=== PATIENT | female | born 1950 | race African-American/Black ===

== ENCOUNTER 2020-12-07 10:33 | Inpatient (IN) | payer MEDICARE ==
[~2020-12-07] VITALS: Ht 154.9 cm; Wt 46.9 kg
[2020-12-07] VITALS (8 sets, daily range): BP systolic 155–175; BP diastolic 58–119
[2020-12-07] MEDS ORDERED: AMIODARONE HCL400 MG PO (11:16)
[2020-12-07] MEDS ORDERED: COLACE100 MG PO (11:17)
[2020-12-07] MEDS ORDERED: NORVASC5 MG PO (11:17)
[2020-12-07] MEDS ORDERED: TOPROL XL50 MG PO (11:18)
[2020-12-07] MEDS ORDERED: NEURONTIN 300M300 M2 PO (11:18)
[2020-12-07] MEDS ORDERED: SUPER THERAVIT1 EACH PO (11:19)
[2020-12-07] MEDS ORDERED: PERCOCET 5-3251 EACH PO (11:19)
[2020-12-07] MEDS ORDERED: PIPERACIL-TA3.375 G1 IV (11:20)
[2020-12-07] MEDS ORDERED: VANCOCIN 125 M125 M1 IV (11:21)
[2020-12-07 11:31] LABS: ABSOLUTE NEUTROPHILS 10.5 thou/uL (1.4-8.2); BASOPHILS 0.5 % (0.0-2.0); EOSINOPHILS 0.5 % (0.0-3.0); HEMATOCRIT 29.3 % (37.0-47.0); HEMOGLOBIN 9.3 gm/dL (12.0-15.0); LYMPHOCYTES 17.1 % (24.0-44.0); MCHC 31.9 g/dL (28.0-37.0); MCV 84.7 fL (80.0-100.0); MONOCYTES 7.3 % (1.0-8.0); PLATELET COUNT 580 thou/uL (150-400); POLYS 74.6 % (36.0-66.0); RBC 3.47 mil/uL (4.20-5.00); RDW 14.8 % (10.5-14.5); WBC 14.1 thou/uL (4.0-11.0)
[2020-12-07 11:38] LABS: ANION GAP 15 mmol/L (7-16); BUN 29 mg/dL (7-18); CALCIUM 8.9 mg/dL (8.5-10.1); CHLORIDE 109 mmol/L (98-107); CO2 20 mmol/L (21-32); CREATININE 2.2 mg/dL (0.6-1.0); GLUCOSE 119 mg/dL (74-106); SODIUM 144 mmol/L (136-145)
[2020-12-07 11:42] LABS: POTASSIUM 2.9 mmol/L (3.5-5.1)
[2020-12-07 11:49] LABS: ALBUMIN 1.8 g/dL (3.4-5.0); LIPASE 582 U/L (73-393); MAGNESIUM 1.8 mg/dL (1.8-2.4); SGOT 23 U/L (15-37); SGPT 40 U/L (14-59); TOTAL BILIRUBIN 0.3 mg/dL (0.2-1.0); TOTAL PROTEIN 8.5 g/dL (6.4-8.2); TROPONIN-I <0.06 ng/mL (<0.06)
[2020-12-07 11:53] LABS: URINE BILIRUBIN NEGATIVE (Negative); URINE BLOOD NEGATIVE (Negative); URINE CLARITY CLEAR; URINE COLOR YELLOW; URINE GLUCOSE-RANDOM* NEGATIVE (Negative); URINE KETONES NEGATIVE (Negative); URINE LEUKOCYTES-REFLEX NEGATIVE (Negative); URINE NITRITE-REFLEX NEGATIVE (Negative); URINE PROTEIN (DIPSTICK) TRACE (Negative); URINE UROBILINOGEN 0.2 E.U./dl (0.2-1.0)
--- NOTE | 2020-12-07 15:16 | NUR ---
IV NURSE REPORTS THAT LINE PT HAS IS MIDLINE AND PT WILL NEED ORDER FOR PICC, CALL TO FLOOR INFORMED THEM THAT THEY WILL NEED TO GET ORDER FOR PICC FROM HOSPITALIST.NO ANSWER AFTER GREATER THAN 5 MINUTES CALLED BACK STATES THAT [facility] IS TAKING PT AND PLACED BACK ON HOLD.
--- NOTE | 2020-12-07 15:55 | EKG ---
[place] [address] [facility] [place] [address] ELECTROCARDIOGRAM REPORT Name: CHRISTIAN MULLEN Room #: 460-P ADM IN M.R.#: [id number] Admission: 12/07/20 Attend Phys: Az Waggoner MD Discharge: Date of : 48 Report #: [id number] [facility] ED Test Date: 2020-12-07 Test Time: 11:28:20 Pat Name: CHRISTIAN MULLEN Department: Room: 460 Gender: F Sagger Preparer: KF : 1950 Requested By: Trev Wright Order Number: [id number] MD: Quoc Hurtado Measurements Intervals [place] Rate: 56 P: 50 RI: 160 QRS: 19 QRSD: 145 T: 158 QT: 491 QTc: 474 Interpretive Statements Sinus rhythm Left bundle branch block Baseline wander in lead(s) V2 No previous ECG available for comparison Electronically Signed On 12-07-2020 15:55:31 CDT by Quoc Hurtado [email or web address] <ELECTRONICALLY SIGNED> By: Quoc Hurtado MD, [facility] 12/07/20 1555 1128 1128 Quoc Hurtado MD, FACC /EPI
--- NOTE | 2020-12-07 16:25 | NUR ---
VAT CONSULTED FOR PIV PLACEMENT, WHILE PT IN ED. RN REPORTED THAT PT C/O PAIN WHEN "PICC FLUSHED." THIS RN ASSESSED AND IS ACTUALLY A MIDLINE. PT AGAIN, WINCES WHEN FLUSHED. ED RN REPORTED THAT PT RECEIVING IV VANC AND ZOSYN. MIDLINE JUST PLACED 3 DAYS AGO. REMOVED MIDLINE AND ASSESSED BILATERAL ARMS WITH US. NO VESSEL ADEQUATE SIZE FOR PIV INSERTION. RECOMMENDED PICC LINE FOR THIS PT.
--- NOTE | 2020-12-07 19:28 | NUR ---
Pt arrived to floor from emergency room per cart in stable condition. Admission hx ,assessment and careplan completed.Pt has uncontrolled bowel and bladder.Voided and have bm at the same time. Pericare given. Pt and family were frustrated as a result of this and wanted pt have adult diaper.Rn discouraged this but wanted to call for bed mendoza to prevent bed sore.Pt agreed. Dinner tray given and well tolerated.Family left after dinner.Report off to noc rn.
[2020-12-08 04:06] VITALS: BP 169/76
[2020-12-08 04:41] LABS: CREATININE 1.5 mg/dL (0.6-1.0); MAGNESIUM 1.5 mg/dL (1.8-2.4); POTASSIUM 3.3 mmol/L (3.5-5.1)
[2020-12-08 04:50] LABS: ABSOLUTE NEUTROPHILS 10.3 thou/uL (1.4-8.2); BASOPHILS 0.6 % (0.0-2.0); EOSINOPHILS 0.9 % (0.0-3.0); HEMATOCRIT 23.4 % (37.0-47.0); HEMOGLOBIN 7.7 gm/dL (12.0-15.0); LYMPHOCYTES 17.3 % (24.0-44.0); MCH 27.6 pg (26.0-34.0); MCHC 33.1 g/dL (28.0-37.0); MCV 83.5 fL (80.0-100.0); POLYS 73.2 % (36.0-66.0); RDW 14.6 % (10.5-14.5); WBC 14.1 thou/uL (4.0-11.0)
[2020-12-08 04:53] LABS: PLATELET COUNT 477 thou/uL (150-400)
[2020-12-08 07:15] VITALS: BP 167/77
--- NOTE | 2020-12-08 07:40 | NUR ---
PT WAS LYING ON HER BED WATCHING TV AT SHIFT CHANGE.PT STATED TAHT SHE HAS BM WHENEVER SHE URINATES.MID ABD WOUND DRSG DONE,PIC TAKEN.SR ON TELE.PT DENIED PAIN ALL NIGHT.PT REF HER HEPARIN AT HS.PT CONT ON IVF AND IV ABX.REPORT TO AM NURSE.
[2020-12-08 12:57] LABS: HEMATOCRIT 25.3 % (37.0-47.0); HEMOGLOBIN 8.6 gm/dL (12.0-15.0)
[2020-12-08 16:30] VITALS: BP 197/82
--- NOTE | 2020-12-08 19:51 | NUR ---
Assumed pt care this am, Vs stable. Wound care and dressing change done as needed. No pain was noted. Went down for a CT w/ contrast. Has asked for the bed mendoza multiple times. Wound culture orded night nurse informed. POC followed with no signs of distres noted, family at the bed side. Q2 turns done through out the shift. Endorsed to the night nurse.
[2020-12-08 21:18] VITALS: BP 155/76
[2020-12-09 04:52] LABS: HEMATOCRIT 23.1 % (37.0-47.0); HEMOGLOBIN 7.5 gm/dL (12.0-15.0); MCH 27.3 pg (26.0-34.0); MCHC 32.7 g/dL (28.0-37.0); MCV 83.7 fL (80.0-100.0); RBC 2.76 mil/uL (4.20-5.00); RDW 14.8 % (10.5-14.5); WBC 14.7 thou/uL (4.0-11.0)
[2020-12-09 04:57] LABS: CALCIUM 8.1 mg/dL (8.5-10.1); CREATININE 1.3 mg/dL (0.6-1.0); POTASSIUM 3.8 mmol/L (3.5-5.1)
[2020-12-09 07:15] VITALS: BP 173/77
--- NOTE | 2020-12-09 07:30 | NUR ---
PT LYING IN BED. INCONTINENT. DENIES PAIN. DENIES NAUSEA. RESTING COMFORTABLY. NO NEEDS VOICED. CALL LIGHT WITHIN REACH. FREQUENT OBSERVATION.
--- NOTE | 2020-12-09 08:03 | HC ---
[facility] [place] [address] CONSULTATION Name: CHRISTIAN MULLEN Room #: 460-P ADM IN M.R.#: [id number] Admission: 12/07/20 Attend Phys: Az Waggoner MD Discharge: Date of : 48 Report #: [id number] THIS REPORT FOR: cc: Yayo Fowler MD, Christopher B. MD [place], Allen B. MD ~ DATE OF SERVICE: 12/08/2020 WOUND CARE CONSULTATION NOTE LOCATION: [facility]. REASON FOR CONSULTATION: Abdominal pain with drainage from midline surgical incision. HISTORY OF PRESENT ILLNESS: The patient is a 69-year-old woman with chronic kidney disease stage 3, who had undergone 2 abdominal surgical operations at [facility]. She had undergone salpingo-oophorectomy and adhesiolysis on 11/09/2020 in [facility]. After being discharged home, she had abdominal pain and underwent an exploratory laparotomy with bowel resection and drainage of diffuse intraperitoneal abscess secondary to jejunal perforation. The patient remained on antibiotics. She was seen in the Wound Care Clinic, noted to have drainage from her midline abdominal incision, is admitted to the hospital. General Surgery, Dr. Amando Bates has been consulted. The patient now feels relatively well. PAST MEDICAL HISTORY: Chronic kidney disease stage 3. LABORATORY DATA: White blood count 14,100 yesterday and today, hemoglobin 7.7, hematocrit 23.4, creatinine 1.5, estimated glomerular filtration rate 42, potassium 3.3. PHYSICAL EXAMINATION: GENERAL: Shows a thin, chronically ill-appearing elderly woman. She is alert, pleasant, conversant, does not appear to be in pain. HEENT: Mucous membranes are moist. NECK: Supple. LUNGS: Respirations unlabored. GASTROINTESTINAL: Abdominal exam shows a healing midline surgical incision with surgical clips. There is a disrupted portion in the middle of the wound of approximately 1 x 1 cm. This is draining a thick whitish yellow, slightly mucoid drainage, which does not appear to be caustic to the skin. This is suspicious for possible enteric content. The patient has been drinking some Ensure. This draining fluid appears possibly enteric. Wound is explored with a sterile cotton-tipped applicator. There is a significant cavity under the [address] [address] CONSULTATION Name: CHRISTIAN MULLEN Room #: 460-[facility] IN M.R.#: [id number] Admission: 12/07/20 Attend Phys: Az Waggoner MD Discharge: Date of : 48 Report #: [id number] incision with undermining of the wound superiorly and inferiorly and depth of the wound superiorly is approximately 6-7 cm. At the laboratory above, albumin 1.8. Wound does not appear red or infected. IMPRESSION: 1. Severe protein-calorie malnutrition, albumin 1.8. 2. Chronic kidney disease stage 3 , estimated glomerular filtration rate 42. 3. Nonhealing surgical wound with a disruption of the skin incision and clinical suspicion of possible enterocutaneous fistula. IMPRESSION AND DISCUSSION: CT scan of abdomen and pelvis shows some soft tissue thickening and stranding with no drainable fluid collection present. I have discussed the case with Dr. Amando Bates, certified surgical first assistant. The patient may be developing an enterocutaneous fistula. The wound appeared adequately drained at the present time externally. We will continue to pack the wound with Dakin's gauze and observe. General Surgery will make recommendation. Wound may require further opening. May be able to observe the fistula formation with pouching of the wound. The patient may benefit from total parenteral nutrition. We will discuss this with General talent consultant. We will leave current wound care orders in place with packing with quarter-strength Dakin's gauze and observe for drainage and possible fistula formation. <ELECTRONICALLY SIGNED> By: Louis lBair MD 12/09/20 0803 1005 1131 Louis Blair MD /nt
[2020-12-09 16:25] VITALS: BP 141/68
--- NOTE | 2020-12-09 18:28 | NUR ---
Assumed pt care this am, VS stable. Wound care and dressing change done several time through out the shift. Urinary frequency noted through out the shift, requesting for a bed mendoza at least every hour with minimal out put each time. Liquid stools also noted. Poor oral intake and nutrition noted through out the shift, discussed this with the pt as well. IR consult placed for drainage. POC followed with not signs or verbalizations of distress noted. Endorsed to the night nurse.
[2020-12-09 19:02] VITALS: BP 131/61
[2020-12-10 05:45] LABS: ABSOLUTE NEUTROPHILS 11.1 thou/uL (1.4-8.2); BASOPHILS 0.6 % (0.0-2.0); EOSINOPHILS 1.1 % (0.0-3.0); HEMATOCRIT 26.4 % (37.0-47.0); HEMOGLOBIN 8.6 gm/dL (12.0-15.0); LYMPHOCYTES 20.6 % (24.0-44.0); MCH 27.6 pg (26.0-34.0); MCHC 32.8 g/dL (28.0-37.0); MCV 84.2 fL (80.0-100.0); MONOCYTES 8.1 % (1.0-8.0); PLATELET COUNT 457 thou/uL (150-400); POLYS 69.6 % (36.0-66.0); RBC 3.13 mil/uL (4.20-5.00); RDW 15.2 % (10.5-14.5); WBC 15.9 thou/uL (4.0-11.0)
[2020-12-10 07:28] VITALS: BP 151/73
--- NOTE | 2020-12-10 08:24 | NUR ---
PT LYING IN BED. DENIES PAIN. INCONTINENT. RESTING COMFORTABLY. NO NEEDS VOICED. CALL LIGHT WITHIN REACH. FREQUENT OBSERVATION.
[2020-12-10 08:40] LABS: INR 1.13; PROTIME 12.2 Seconds (10.5-12.1)
[2020-12-10 12:41] LABS: CALCIUM 8.7 mg/dL (8.5-10.1); CREATININE 1.5 mg/dL (0.6-1.0); POTASSIUM 4.3 mmol/L (3.5-5.1)
--- NOTE | 2020-12-10 13:09 | NUR ---
RN agrees with HEALTHCARE RECRUITER assessment.
--- NOTE | 2020-12-10 14:35 | NUR ---
PT ADMITTED RELATED TO SEPSIS, WOUND DEHISCENCE, HYPOKALEMIA. CM REVIEWED CHART AND SPOKE WITH CARE TEAM. CM MET WITH PT AND SPOUSE AT BEDSIDE THIS DAY. PT APPEARED TO BE A&O X4. CM ROLE INTRODUCED. PT INDICATED SHE HAD BEEN OVER AT [facility] SKILLED PRIOR TO ADMISSION. PT INDICATED THAT PRIOR TO THAT SHE HAD BEEN AT [facility] AND THAT PRIOR TO THAT HOSPITALIZATION SHE HAD BEEN AT HOME WITH HER SPOUSE. SHE INDICATED SHE RESIDES IN A HOUSE WITH 1 STEP TO ENTER AND NONE INSIDE. 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 PT HAS A CANE FOR USE AT HOME. PT'S PCP ID DR. CICI BERMEO. PT INDICATED SHE HOPES TO RETURN HOME FROM HERE ONCE MEDICALLY STABLE. PT INDICATED SHE WAS RECEPTIVE TO HH SERVICES IF RECOMMENDED. CM FOLLOWING REGARDING DC PLANING.
[2020-12-10 14:57] VITALS: BP 150/77
--- NOTE | 2020-12-10 15:15 | NUR ---
ASSUMED CARE OF PATIENT AT SHIFT CHANGE; APPROX 0700. ASESSMENT CHARTED. MEDICATIONS HELD PER NPO STATUS. VSS. PATIENT IS A&OX3 WITH SOME FORGETFULNESS. VOICING PAIN ON R LEG/HIP AREA PARKER. WITH MOVEMENT.
--- NOTE | 2020-12-10 15:46 | NUR ---
PATIENT CARE ASSUMED AT APPROX 0700. ASSESSMENT CHARTED. MEDS HELPD PER NPO STATUS. VSS. PATIENT A&OX4. DENIES PAIN AT TIME OF ASSESSMENT. PATIENT WAS NPO FOR A CT GUIDED DRAIN PLACEMENT. PATIENT ARRIVED FROM PROCEDURE A&O, DROWSY BUT ABLE TO ANSWER QUESTIONS AND DENIED PAIN. PATIENT NOW HAS A BARB DRAIN PLACED ON RLQ DRAINING PINKISH FLUID. FLUIDS RESUMED AND ABX. INFUSING ON L AC W NO ISSUES. PATIENT RESUMED REGULAR DIET AND TOLERATING WELL. ON BEDREST UNTIL 1515. PATIENT VOICED NO FURTHER NEEDS. WILL CONTINUE TO MONITOR AND FOLLOW PLAN OF CARE
--- NOTE | 2020-12-10 15:57 | 2DMMODE ---
[facility] [place] [address] [place] [address] 2 D/M-MODE ECHOCARDIOGRAM Name: CHRISTIAN MULLEN Room #: 460-P ADM IN M.R.#: [id number] Admission: 12/07/20 Attend Phys: Az Waggoner MD Discharge: Date of : 48 Report #: [id number] THIS REPORT FOR: cc: Yayo Fowler MD, Christopher B. MD Lammoglia, Francisco J. MD ~ APPROVED REPORT Study performed: 12/10/2020 15:07:34 EXAM: Comprehensive 2D, Doppler, and color-flow Echocardiogram Patient Location: Bedside Room #: 460 Status: routine BSA: 1.47 HR: 55 bpm BP: 150/77 mmHg Rhythm: LBBB Other Information Study Quality: Good Indications Dyspnea Hx: Afib 2D Dimensions RVDd: 32.11 mm IVSd: 12.00 (7-11mm) LVOT Diam: 18.00 (18-24mm) LVDd: 37.00 mm PWd: 12.00 (7-11mm) Ascending Ao: 32.00 (22-36mm) LVDs: 30.00 (25-40mm) Left Atrium: 30.01 (27-40mm) Aortic Root: 32.64 mm Volumes Left Atrial Volume (Systole) Single Plane 4CH: 29.00 mL Single Plane 2CH: 37.68 mL LA ESV Index: 24.00 mL/m2 Aortic Valve AoV Peak Dale.: 1.54 m/s AO Peak Gr.: 9.47 mmHg LVOT Max P.60 mmHg LVOT Max V: 1.07 m/s [facility] [address] [place] [address] 2 D/M-MODE ECHOCARDIOGRAM Name: PAZCHRISTIAN Room #: 460-P [facility] IN [facility].#: [id number] Admission: 12/07/20 Attend Phys: Kimber Patterson Discharge: Date of : 48 Report #: [id number] MOODY Vmax: 1.73 cm2 Mitral Valve E/A Ratio: 0.7 MV Decel. Time: 260.10 ms MV E Max Dale.: 0.90 m/s MV A Dale.: 1.25 m/s MV PHT: 75.43 ms IVRT: 114.19 ms Pulmonary Valve PV Peak Dale.: 0.96 m/s PV Peak Gr.: 3.69 mmHg Tricuspid Valve TR Peak Dale.: 2.93 m/s RAP Estimate: 5.00 mmHg TR Peak Gr.: 34.23 mmHg PA Pressure: 39.00 mmHg Left Ventricle The left ventricle is normal size. Paradoxical septal motion consistent with conduction abnormality. Mild concentric left ventricular hypertrophy. Left ventricular systolic function is low normal. LVEF is 50%. Mild diastolic dysfunction is present (impaired relaxation pattern). Right Ventricle The right ventricle is normal size. The right ventricular systolic function is normal. Atria The left atrium size is normal. The right atrium size is normal. Aortic Valve The aortic valve is normal in structure. No aortic regurgitation is present. There is no aortic valvular stenosis. Mitral Valve The mitral valve is normal in structure. Mild mitral annular calcification. Mild to moderate mitral regurgitation. Tricuspid Valve The tricuspid valve is normal in structure. Trace to mild tricuspid regurgitation. Estimated PAP is 40mmHg. Pulmonic Valve [facility] [address] [place] [address] 2 D/M-MODE ECHOCARDIOGRAM Name: CHRISTIAN MULLEN Room #: [address] [place] [address] IN M.R.#: [id number] Admission: 12/07/20 Attend Phys: Kimber Patterson Discharge: Date of : 48 Report #: [id number] Pulmonic valve is grossly normal in structure. Great Vessels The aortic root is normal in size. The ascending aorta is normal in size. IVC is normal in size and collapses >50% with inspiration. Pericardium There is no pericardial effusion. Bilateral pleural effusions noted. <Conclusion> The left ventricle is normal size. Mild concentric left ventricular hypertrophy. Paradoxical septal motion consistent with conduction abnormality. LVEF is 50%. The right ventricle is normal size. The left atrium size is normal. The aortic valve is normal in structure. The mitral valve is normal in structure. Mild mitral annular calcification. Mild to moderate mitral regurgitation. The tricuspid valve is normal in structure. Trace to mild tricuspid regurgitation. Estimated PAP is 40mmHg. Pulmonic valve is grossly normal in structure. The aortic root is normal in size. There is no pericardial effusion. Bilateral pleural effusions noted. <ELECTRONICALLY SIGNED> By: Ziggy Giles MD 12/10/20 1557 1557 1557 Ziggy Giles MD /INF
--- NOTE | 2020-12-10 16:46 | EKG ---
[address] [place] [address] ELECTROCARDIOGRAM REPORT Name: CHRISTIAN MULLEN Room #: 460-P ADM IN M.R.#: [id number] Admission: 12/07/20 Attend Phys: Az Waggoner MD Discharge: Date of : 48 Report #: [id number] [facility] Test Date: 2020-12-10 Test Time: 15:31:06 Pat Name: CHRISTIAN MULLEN Department: Room: 460 Gender: F Inspector Tool: [id number] : 1950 Requested By: Az Waggoner Order Number: [id number] MD: Keanu Balderas Measurements Intervals [place] Rate: 63 P: 44 DC: 158 QRS: 52 QRSD: 153 T: 86 QT: 563 QTc: 577 Interpretive Statements Sinus rhythm IVCD, consider atypical LBBB Baseline wander in lead(s) V6 Compared to ECG 12/07/2020 11:28:20 No significant changes Electronically Signed On 12-10-2020 16:46:27 CDT by Keanu Balderas [email or web address] <ELECTRONICALLY SIGNED> By: Keanu Balderas MD, [facility] 12/10/20 1646 30 30 Keanu Balderas MD, [facility] /EPI
[2020-12-10 19:31] VITALS: BP 135/69
[2020-12-11 05:11] LABS: ABSOLUTE NEUTROPHILS 8.4 thou/uL (1.4-8.2); BASOPHILS 0.7 % (0.0-2.0); EOSINOPHILS 0.8 % (0.0-3.0); HEMATOCRIT 24.6 % (37.0-47.0); HEMOGLOBIN 7.9 gm/dL (12.0-15.0); LYMPHOCYTES 23.3 % (24.0-44.0); MCH 27.5 pg (26.0-34.0); MCHC 32.3 g/dL (28.0-37.0); MCV 85.2 fL (80.0-100.0); MONOCYTES 10.2 % (1.0-8.0); RBC 2.88 mil/uL (4.20-5.00); RDW 15.2 % (10.5-14.5)
[2020-12-11 05:27] LABS: CALCIUM 8.4 mg/dL (8.5-10.1); CREATININE 1.8 mg/dL (0.6-1.0); POTASSIUM 3.7 mmol/L (3.5-5.1)
[2020-12-11 05:55] LABS: PLATELET COUNT 373 thou/uL (150-400)
[2020-12-11 08:01] VITALS: BP 142/66
--- NOTE | 2020-12-11 08:27 | NUR ---
RECIEVED CARE OF THIS PATIENT AT 1900. PATIENT ALERT AND ORIENTED X4. C/O PAIN MED GIVEN. DRESSING ON ABD AND J-P DRAIN DRY AND INTACT. WHEN PATIENT COUGHS IT HURTS HER ABD, GAVE HER A FOLDED BLANKET TO USE A BRACE AND PATIENT SAID WAS MUCH BETTER. SLEPT MOST OF NIGHT.
--- NOTE | 2020-12-11 12:02 | NUR ---
ASSUMED PT CARE THIS AM. PT VSS, A&OX4. PATIENT ABLE TO MAKE NEEDS KNOWN. IV PATENT, SALINE LOCKED. TOOK MEDS WITHOUT ISSUE THIS AM. BARB DRAIN TO RIGHT UPPER QUADRANT OF ABDOMEN AND MIDLINE ABDOMINAL DRESSING IN PLACE. PATIENT REPORTS PAIN ONLY WITH MOVEMENT, BUT DENIED PAIN MEDS WHEN OFFERED AT DIFFERENT TIMES. REPORTED NAUSEA WHEN WORKING WITH PHYSICAL THERAPY, DECLINED NAUSEA WHEN NURSE ASKED PATIENT AFTER WORKING WITH PHYSICAL THERAPY. PATIENT ON TELEMETRY. FALL PRECAUTIONS ARE IN PLACE, CALL LIGHT WITHIN REACH.
--- NOTE | 2020-12-11 12:05 | NUR ---
PT HAD DRAIN PLACED BY IR YESTERDAY. SURGERY FOLLOWING. PT ON IV VANC AND ZOSYN STILL AWAITING CUTURES. CM FOLLOWING REGARDING DC PLANNING.
[2020-12-11 15:23] VITALS: BP 135/67
[2020-12-11 19:34] VITALS: BP 149/74
[2020-12-12 01:04] VITALS: BP 166/63
[2020-12-12 04:53] VITALS: BP 155/63
--- NOTE | 2020-12-12 05:34 | NUR ---
patient denied pain or discomfort. dressing on abd incision is c/d/i. patient told this nurse that she dont need dressing change <<they just packed the wound>> patient has a arely drain on abd ruq with serosanguinous drainage, 2oml out put.patient continent this shift pericare and barrier cream applied as needed. fall precaution in place. call light within reach. patient in bed asleep at this time breathing regular and unlaboured.
[2020-12-12 07:25] VITALS: BP 151/64
--- NOTE | 2020-12-12 14:28 | NUR ---
CM FOLLOWED UP WITH PT AT BEDSIDE THIS DAY. CM INDICATED THAT [employer] QUOTED BENEFIT COVERAGE FOR HOME INFUSION WITH [facility] AT $150.44 PER WEEK SUPPLIES COVERED AT 100%. CARE TEAM IS INDICATING THAT PT WILL LIKELY NEED DRAIN UPON DC AND THAT SHE WILL NEED CONTINUES IV ABX. CM NOTIFIED PT OF THIS AND SHE INDICATED THAT SHE WOULD THEN LIKELY NEED SKILLED STAY ONCE MEDICALLY STABLE. CM PROVIDED PT AN [employer] SNF LIST TO REVIEW WITH HER SPOUSE. PT IS TO HAVE A STUDY DONE TOMORROW. CM FOLLOWING REGARDING DC PLANNING.
[2020-12-12 15:43] VITALS: BP 118/44
--- NOTE | 2020-12-12 19:40 | NUR ---
PT AOX4, NOTABLY LETHARGIC. PT REPORTS 6/10 ABDOMINAL PAIN. PT RECEIVING PRN PO OXYCODONE Q4HR WITH PRN PO APAP Q4HR AVAILABLE. PT INTERMITTENTLY REPORTS SOB, 2L O2 APPLIED VIA NC, PT REPORTING IMMEDIATE RELIEF. PT TOLERATING PO INTAKE OF FLUIDS AND REGULAR DIET WITHOUT ISSUE, PT WITH DECREASED APPETITE. PT AMBULATING WITH X1 ASSIST TO CHAIR, USING BEDPAN. SENSATION INTACT, CAPILLARY REFILL LESS THAN 3SEC IN ALL EXTREMITIES. PT NOTED TO HAVE WEAKNESS WITH BRADYCARDIA. DR. PARR NOTIFIED, CARDIOLOGY CONSULTED, EMAR UPDATED. PT MAINTAINS DRESSING TO MIDLINE ABDOMEN, CLEAN, DRY AND INTACT, CHANGED BY WOUND TEAM TODAY. PT ENCOURAGED TO NOTIFY STAFF FOR ALL NEEDS, CALL LIGHT WITHIN REACH, BED ALARM ON, BED LOCKED IN LOWEST POSITION, FREQUENT MONITORING WILL CONTINUE.
[2020-12-12 19:45] VITALS: BP 153/53
[2020-12-13 06:20] LABS: CALCIUM 8.4 mg/dL (8.5-10.1); CREATININE 1.8 mg/dL (0.6-1.0); MAGNESIUM 1.5 mg/dL (1.8-2.4); POTASSIUM 3.3 mmol/L (3.5-5.1)
[2020-12-13 07:46] VITALS: BP 128/47
--- NOTE | 2020-12-13 07:56 | NUR ---
RECIEVED CARE OF THIS PATIENT AT 1900. PATIENT ALERT AND ORIENTED X4. USES BEDPAN MOST OF THE TIME BUT ECIDED TO GET UP TO BATHROOM. UP WITH WALKER, GATE BELT, AND ASSIST OF TWO. DID WELL. BARB DRAIN WITH SMALL AMOUNT CREAM COLORED FLUID. DRESSING ON ABD D/I. DENIES PAIN. SLEPT MOST OF NIGHT.
--- NOTE | 2020-12-13 14:45 | NUR ---
ASSUMED CARE OF PT AT 0700 THIS MORNING. PT IS ADMITTED FOR DEHISINCE OF ABD INCISION POST SURGICAL. P HAS BARB DRAIN IN PLACE WITH ONLY 10ML OF DRAINAGE THIS MORNING. PT IS GOING TO CT TO SEE IF THERE IS A BLOCKAGE IN THE BARB LINE. PT CAME BACK AND DRAIN IS WORKING BETTER. PT IS A/OX4, INCISION PACKED WITH KERLEX AND DAKENS. ASSESSMENTS OTHERWISE UNREMARKABLE. CALL LIGHT AND OTHER NEEDS ARE PLACED WITHIN REACH.
--- NOTE | 2020-12-13 15:07 | NUR ---
PT HAD FISTULAGRAM THIS DAY. A FISTULA WAS FOUND. PT IS TO BE STARTED ON BOWEL REST AND TPN. TO HAVE PICC PLACED. PT CONTINUES WITH DRAIN, IV VANC AND ZOSYN. SURGON INDICATED PT WILL LIKELY NEED A COUPLE WEEKS OF TPN AND BOWEL REST AND CONTINUED IV ABX. CM CHECKED AND IGNITE HERMAN WHERE PT HAD BEEN SKILLED HEADING PINNER DOES MANAGE TPN OTHERWISE MIGHT SPEAK TO PT ABOUT [facility]. CM TO FOLLOW INDICATED WITH DC PLANNING.
--- NOTE | 2020-12-13 16:36 | NUR ---
VASCULAR ACCESS NURSE PLACING A #4F DOUBLE LUMEN POWER PICC PER HOSPITAL POLICY. LINE WAS TRIMMED TO 44CM AND ADVANCED TO 3CM EXTERNAL AFTER A BEDSIDE TIMEOUT WAS COMPLETED. LINE WAS CONFIRMED WITH [employer] TECHNOLOGY AT 4CM EXTERNAL. LINE SECURED AND RELEASED FOR USE
[2020-12-13 18:05] VITALS: BP 132/55
[2020-12-13 21:35] VITALS: BP 130/58
[2020-12-14 03:30] VITALS: BP 163/72
--- NOTE | 2020-12-14 03:43 | NUR ---
ASSUMED PT CARE AT AROUND 1920HRS. PT WAS VISITING WITH FAMILY MBRS. PT IS PLEASANT AND COOPERATIVE. REFUSED HER GABAPENTIN AT HS. SHE HAS NOT NEEDED ANY PAIN MEDS THRO SHIFT. AFEBRILE. DRSG CHANGE TO MIDABDOMINAL INCISION COMPLTED. PT USES BEDPAN.
[2020-12-14 05:11] LABS: ALBUMIN 1.4 g/dL (3.4-5.0); CALCIUM 8.4 mg/dL (8.5-10.1); CREATININE 1.6 mg/dL (0.6-1.0); MAGNESIUM 2.2 mg/dL (1.8-2.4); PHOSPHORUS 3.4 mg/dL (2.5-4.9); TOTAL BILIRUBIN 0.3 mg/dL (0.2-1.0); TOTAL PROTEIN 7.2 g/dL (6.4-8.2)
[2020-12-14 05:13] LABS: POTASSIUM 2.9 mmol/L (3.5-5.1)
[2020-12-14 08:27] VITALS: BP 173/77
--- NOTE | 2020-12-14 15:01 | NUR ---
PT WITH INCREASED SOB THIS AM HAD CHEST XRAY. CM MET WITH PT, SON, AND SISTERS AT BEDSIDE THIS DAY. THEY INDIATED THAT THEY WERE NOW RECEPTIVE TO RETURN TO [facility]. CM FAXED CLINICAL UPDATE TO THEM. [facility] IS TO MET WITH PT AT BEDSIDE THIS DAY. ID STILL FOLLOWING FOR IV ABX. PT STILL ON TPN WC. ANTICIPATE POSSIBLE DC BEGINNING OF NEXT WEEK
[2020-12-14 17:31] VITALS: BP 160/77
--- NOTE | 2020-12-14 17:52 | NUR ---
ASSUMED PT CARE THIS AM. PT IS ALERT & ORIENTED X4. PT HAS IV SITE ON R UA PICC LINE DOUBLE LUMEN AND L FA. PT HAS TELE MONITOR ON. PT USES BEDPAN. PT IS NPO AND HAS TPN. WOUND NURSE AND DR CHANGED DRESSING THIS AM. INFORMED DR ABOUT PT SOB AND HAD CHEST XRAY. PT HAD BM TODAY. PT HAS 2L 02 NC. EDUCATED AND DEMONSTRATED HOW TO DO PURSE LIP BREATHING. GIVEN PRN HDRYALAZINE THIS AM DUE TO ELEVATED SBP THIS AM. PT FAMILY AT THE BEDSIDE. INFORMED PT FAMILY CAN HAVE 2 VISITOR PER VISIT. PT FAMILY AT THE BEDSIDE. PT ON THE BED, BED ON THE LOWEST POSITION, SIDE RAILS UP, CALL LIGHT WITHIN REACH. WILL CONTINUE TO MONITOR PT. FOLLOW POC.
[2020-12-15 00:26] VITALS: BP 174/86
[2020-12-15 05:16] LABS: CALCIUM 8.9 mg/dL (8.5-10.1); CREATININE 1.4 mg/dL (0.6-1.0); PHOSPHORUS 2.9 mg/dL (2.5-4.9); POTASSIUM 3.3 mmol/L (3.5-5.1)
--- NOTE | 2020-12-15 05:35 | NUR ---
ASSUMED PT CARE AT AROUND 1915 HRS.PT WAS SITTING IN CHAIR VISITING WITH FAMILY. SHE IS CALM AND QUIET. PT LATER HAD AN INCONTINENT EPISODE IN RECLINER WHICH MADE HER UPSET. PT IS ASSIT X 1 WITH TRANSFERS.CONTINUES ON / AND SATTING AT 100%. BP ELEVATED. ONE TIME DOSE OF HYDRALAZINE GIVEN . ABDOMINAL WOUND DRSG CHANGE DONE. TPN @30/HR, CONTINUES ON IV ABTS. TOLERATES ICE CHIPS..DENIES FURTHER NEEDS.
[2020-12-15 07:30] VITALS: BP 174/86
--- NOTE | 2020-12-15 13:40 | NUR ---
ASSUMED PT CARE AROUND 0715. PT ALERT X ORIENTED X4. ON 2L/O2/NC. USES BEDPAN AT BEDSIDE WITH 1 X PERSON ASSIST. IV RT UA/PICCLINE, DOUBLE LUMEN WITH TPN RUNNING AT 30MLS/HR. BARB DRAIN ,RIGHT SIDE. DID WOUND DRESSING( WITH SOFT GUAZE/ ABDS AND SECURED WITH TAPE). ON TELE MONITORING WITH BBB. PT REFUSED PER ORAL MEDICATION. FALL PRECAUTION IN PLACE. CALL LIGHT IN REACH. WILL CALL APPROPRIATELY. WILL CONTINUE TO MONITOR.
[2020-12-15 21:20] VITALS: BP 138/71
[2020-12-16] VITALS (8 sets, daily range): BP systolic 146–1802; BP diastolic 66–99
--- NOTE | 2020-12-16 07:38 | NUR ---
Assumed pt care at 1900. A/OX4,VSS.Denies pain on assessment. Voiding per bedpan. No N/V.TPN infusing at 50ml/hr via RUE PICC w/o any problems. Drsg to abd changed,pt tolorated well. Potassium replaced per protocol. Pt has shortness of air on exertion, Oxygen in place at 2L/NC. Resting quietly at this time,will continue to monitor pt.
[2020-12-16 08:10] LABS: ABSOLUTE NEUTROPHILS 9.1 thou/uL (1.4-8.2); BASOPHILS 0.4 % (0.0-2.0); EOSINOPHILS 1.7 % (0.0-3.0); HEMATOCRIT 22.6 % (37.0-47.0); HEMOGLOBIN 7.4 gm/dL (12.0-15.0); LYMPHOCYTES 20.7 % (24.0-44.0); MCH 27.2 pg (26.0-34.0); MCHC 32.9 g/dL (28.0-37.0); MCV 82.7 fL (80.0-100.0); PLATELET COUNT 320 thou/uL (150-400); POLYS 68.2 % (36.0-66.0); RBC 2.73 mil/uL (4.20-5.00); RDW 14.9 % (10.5-14.5); WBC 13.4 thou/uL (4.0-11.0)
[2020-12-16 08:23] LABS: ALBUMIN 1.6 g/dL (3.4-5.0); CALCIUM 9.2 mg/dL (8.5-10.1); CREATININE 1.3 mg/dL (0.6-1.0); MAGNESIUM 2.1 mg/dL (1.8-2.4); PHOSPHORUS 2.2 mg/dL (2.5-4.9); POTASSIUM 4.2 mmol/L (3.5-5.1); TOTAL BILIRUBIN 0.2 mg/dL (0.2-1.0)
--- NOTE | 2020-12-16 09:33 | NUR ---
ASSUMED PT CARE AROUND 0700. PT ALERT X ORIENTE X 4. WAS ON 2L/O2/NC DURING SHIFT REPORT, LATER RESPIRATOTY THERAPY TOOK OFF 02 PT IS ON 98-99%O2 SAT. PT WAS COMPLAINING OF SLIGHT DISTRESS AND BREATHING DIFFICULTY, O2 SAT ON ROOM AIR WAS 99%. RN LET DR. FROST KNOW ABOUT THE DISTRESS. CT CHEST ORDERED AND PT WAS TAKEN DOWNSTAIRS AROUND [address] CHEST. PT LYING COMFORTABLY ON BED. WOUND MID ABDOMEN DRESSING CHANGED BY WOUND DOCTOR. HAD A BM TODAY MORNING. IV RT UA PICC LINE/DOUBLE LUMEN WITH TPN RUNNING AT 50MLS/HR. FALL PRECAUTION IN PLACE. CALL LIGHT IN REACH. WILL CALL APPROPRIATELY. WILL CONTINUE TO MONITOR.
--- NOTE | 2020-12-16 13:16 | NUR ---
PT TRANSFERRED FROM FOR A CRITICAL CARE STATUS. PT ALERT AND ORIENTED X4, DENIES ANY PAIN, NAUSEA AND VOMITTING. WARM BLANKETS OFFERED FOR SHIVERING. TELE PLACED ON PT. PT ON ROOM AIR, NO SIGNS OF OF DISTRESS NOTED. PT FAMILY IN THE ROOM, UPDATED ABOUT PT CARE. DENIES ANY NEEDS AT THE MOMENT. WILL CONTINUE TO MONITOR.
[2020-12-16 18:58] LABS: HEMATOCRIT 31.7 % (37.0-47.0)
[2020-12-16 18:59] LABS: HEMOGLOBIN 10.7 gm/dL (12.0-15.0)
--- NOTE | 2020-12-16 22:46 | NUR ---
PT A&OX4. VSS. BP MODERATELY ELEVATED . HYDRALAZINE GIVEN AROUND 1800. WILL RECHECK LATER. PT DENIED PAIN. PT ANXIOUS. REFUSED ATIVAN. C/O NAUSEA. MEDICATED WITH ZOFRAN IV. WOUND CARE COMPLETED ORDERED TO BARB AND MIDABDOMINAL WOUND. PT HAS TREMORS AT TIMES. WARM BLANKET GIVEN. AFEBRILE. BED DOWN. CALL LIGHT IN REACH. BED ALARM ON. TPN INFUSING WITHOUT DIFFICULTY ARASELI. ABX HUNG ORDERED.
[2020-12-17] VITALS (7 sets, daily range): BP systolic 132–175; BP diastolic 62–89
--- NOTE | 2020-12-17 06:28 | NUR ---
PT PROGRESSING SLOWLY TOWARDS D/C GOALS. BP CONTINUES TO BE MODERATELY ELEVATED. HYDRALAZINE GIVEN Q 6 HRS. AFEBRILE. NO CHILLS OR TREMORS THIS AM. C/O ITCHING. DRY SKIN NOTED. NO RASH OR REDNESS NOTED. Prashanth KAPADIA CAPTION WRITER NOTIFIED. BENADRY 12.5 MG IV GIVEN. LOTION APPLIED ALL OVER TO DRY SKIN. PT IS NOW SLEEPING WITHOUT C/O. ABDOMINAL DRESSING AND BARB DRESSING CHANGED. ZGARD TO BOTTOM APPLIED. -TPN INFUSING WITHOUT DIFFICULTY THROUGH RIGHT PICC.NO S/S DISTRESS . NO OUTPUT FROM BARB NOTED.
[2020-12-17 06:55] LABS: CALCIUM 9.6 mg/dL (8.5-10.1); CREATININE 1.5 mg/dL (0.6-1.0); MAGNESIUM 2.3 mg/dL (1.8-2.4); PHOSPHORUS 3.4 mg/dL (2.5-4.9)
--- NOTE | 2020-12-17 11:40 | NUR ---
GENNARO reviewed chart and spoke with nursing and attending physician. Pt was transferred to 3 from 4W on Thursday. Pt remains on TPN and IV abx. Discharge back to [facility] is anticipated for tomorrow. Will need insurance authorization. GENNARO met with pt and spouse at bedside to discuss discharge plan. Pt and spouse are agreeable with plan for pt to return to [facility] while on TPN. Pt and spouse would like to meet with [facility] liaison to discuss concerns from previous stay. GENNARO faxed clinical/therapy info for review to [facility] and notified liaison. Per liaison, she has spoken with pt's sister, but will follow up with pt and spouse. TPN formula faxed to [facility]. GENNARO is following to assist as needed with discharge planning.
--- NOTE | 2020-12-17 23:30 | NUR ---
PT ALERT AND ORIENTED X4 .VSS AFEBRILE. BP BETTER TONIGHT. SAT UP IN THE CHAIR FOR HOURS PT STATED. TOLERATED WELL. C/O NAUSEA. MEDICATED WITH ZOFRAN. PT IS CURRENTLY SLEEPING. ABDOMINAL DRESSING CHANGES ORDERED. SEE [facility]. BARB WITH MINIMAL PURULENT DRAINAGE NOTED. FLUSHED CUEVAS ORDERED. ENCOURAGED PT TO TURN SIDE TO SIDE. MOISTURE BARRIER CREAM APPLIED TO BOTTOM ADN ZGARD. BED DOWN. CALL LIGHT IN REACH. BED ALARM IS ON. NO S/S DISTRESS PRESENTLY.
[2020-12-18] VITALS (11 sets, daily range): BP systolic 133–173; BP diastolic 59–85
--- NOTE | 2020-12-18 05:44 | NUR ---
PT PROGRESSING SLOWLY TOWARDS D/C GOALS. BP MODERAELY ELEVATED . NOTIFIED ROVING INSPECTOR I WAS UNABLE TO GIVE ALL OF METOPROLOL AND AM DOSE DUE TO HR WENT INTO 50'S. HYDRALAZINE WAS MADE PRN. METOPROLOL WAS ATTEMPTED BUT ONLY 1.5 ML GIVEN AND PULSE WENT INTO 50'S. WILL INFORM DAY SHIFT NS TO TELL DR PARR TO ADJUST HER BP MEDS REQUESTED BY Eddie KAPADIA ROVING INSPECTOR. PT INC OF URINE DUE TO PURE WICK ONLY PARTIALLY CATCHES URINE. ZGARD APPLIED TO BOTTOM AND LOTION APPLIED TO BACK. NO C/O PAIN THIS AM. NO NAUSEA THIS AM. BED DOWN CALL LIGHT IN REACH.
--- NOTE | 2020-12-18 07:19 | NUR ---
NOTIFIED DAY SHIFT NS TO HAVE DR PARR ADJUST BP MEDS PER TRUCK JUMPER REQUEST AND INFORMED NS FULL DOSES OF METOPROLOL WERE NOT ENTIRELY GIVEN DUE TO HR DROPPED INTO 50s . .
--- NOTE | 2020-12-18 08:43 | NUR ---
ASSUMED PT CARE AT SHIFT CHANGE. PT IS NPO, NO ICE CHIPS. PT RESTING IN BED, NO COMPLAINTS AT THIS TIME. TPN INFUSING.
[2020-12-18 10:03] LABS: HEMOGLOBIN 10.7 gm/dL (12.0-15.0); MCH 27.8 pg (26.0-34.0); MCHC 33.6 g/dL (28.0-37.0); MCV 82.9 fL (80.0-100.0); RBC 3.86 mil/uL (4.20-5.00); RDW 15.5 % (10.5-14.5); WBC 13.4 thou/uL (4.0-11.0)
[2020-12-18 10:10] LABS: CALCIUM 9.3 mg/dL (8.5-10.1); CREATININE 1.3 mg/dL (0.6-1.0); POTASSIUM 4.5 mmol/L (3.5-5.1)
[2020-12-18] MEDS ORDERED: HYDRALAZIN20 MG/1 ML IV PUSH (12:49)
[2020-12-18] MEDS ORDERED: PROTONIX IV40 MG IV (12:49)
[2020-12-18] MEDS ORDERED: IPRAT-ALBUT 0.5-3 ML INH (12:49)
[2020-12-18] MEDS ORDERED: PACERONE 200 M200 M1 PO (12:49)
[2020-12-18] MEDS ORDERED: METOPROLOL5 MG/5 M2 IV PUSH (12:49)
[2020-12-18] MEDS ORDERED: ROCEPHIN 11 GM/1001 IV (12:51)
[2020-12-18] MEDS ORDERED: MICAFUNGIN100 MG IV (12:51)
--- NOTE | 2020-12-18 13:18 | NUR ---
GENNARO reviewed chart and spoke with nursing and attending physician. Pt is medically stable for discharge to [facility] pending insurance authorization. GENNARO was notified by pt's insurance that a SNF auth has not yet been requested. GENNARO discussed with Cas at [facility] who states they are still pricing out pt's medications and TPN. GENNARO faxed updated clinical/therapy notes to [facility] for review. GENNARO updated [employer]. Will need insurance auth for skilled admission. Cas to meet with pt and spouse at bedside this afternoon to discuss concerns from prior stay. [facility] requesting COVID test. GENNARO notified pt's nurse to order test today. GENNARO is following to assist as needed with discharge planning.
[2020-12-19 03:38] VITALS: BP 151/76
--- NOTE | 2020-12-19 04:00 | NUR ---
Slept intermittently during the night. Denies being in pain. Hydralazine 10 mg IV prn given for elevated BP . SB-SR per tele with prolonged QT. Kept NPO per order , TPN infusing. C/O nausea ,zofran given with good relief. Abdominal wound dressing changed and BARB drain flushed with 10 ml NS. Emptied 20 ml purulent dge. this am.Used bedpan to void with occasional stress incontinence when coughin. Bed alarm on and SCD's in place. Afebrile. Making some progress towards care plan goals.
[2020-12-19 05:17] LABS: CALCIUM 9.1 mg/dL (8.5-10.1); CREATININE 1.3 mg/dL (0.6-1.0); MAGNESIUM 2.2 mg/dL (1.8-2.4); PHOSPHORUS 4.3 mg/dL (2.5-4.9); POTASSIUM 4.3 mmol/L (3.5-5.1)
[2020-12-19 08:12] VITALS: BP 167/77
[2020-12-19 11:21] VITALS: BP 174/88
--- NOTE | 2020-12-19 12:12 | NUR ---
CARETAKEN OVER THIS AM, PT ALERT AND ORIENTED X4, DENIES ANY PAIN, NAUSEA AND VOMITTING. PT ON ROOM AIR. NO SIGNS OF DISTRESS NOTED. CONTINUE TO BE STRICT NPO AND ON TPN. ABD WOUND DRESSING CHANGE AND PICTURES TAKEN. RIGHT BARB DRAIN PATENT, IN PLACE, INTACT AND DRY. ANTICIPATING FOR D/C SOON. PT FAMILY VISITING. ANTICIPATING D/C SOON. WILL CONTINUE TO MONITOR.
--- NOTE | 2020-12-19 12:30 | NUR ---
DC to SNF at [facility] planned for tomorrow due to n/v this am. Pt remains on TPN. SNF auth still pending [employer] approval. [facility] admissions updated. 124c faxed.
[2020-12-19 12:47] VITALS: BP 168/78
[2020-12-19 15:30] VITALS: BP 176/77
[2020-12-19 19:19] VITALS: BP 163/74
[2020-12-20] VITALS (7 sets, daily range): BP systolic 157–178; BP diastolic 72–91
--- NOTE | 2020-12-20 03:27 | NUR ---
Pt. slept better last night. Denies need for pain med. Abdominal dressing done with pus dge. BARB drain flushed with 10 ml NS. Kept NPO ,TPN infusing. Uses bedpan to void. No nausea or vomiting. SCD's in place. Bed alarm on. Making some progress towards care plan goals.
[2020-12-20 05:01] LABS: CALCIUM 9.6 mg/dL (8.5-10.1); CREATININE 1.3 mg/dL (0.6-1.0); MAGNESIUM 2.3 mg/dL (1.8-2.4); PHOSPHORUS 4.3 mg/dL (2.5-4.9); POTASSIUM 4.8 mmol/L (3.5-5.1)
--- NOTE | 2020-12-20 13:54 | NUR ---
GENNARO reviewed chart and spoke with nursing and attending physician. Pt is medically stable for discharge to [facility] pending insurance authorization. GENNARO faxed updated clinical and therapy notes to the facility for review. GENNARO contacted Geovanymilyjennifer to follow up on SNF auth. Pending auth # is [id number]. GENNARO provided this info to Casarabella fletcher Henny in admissions at [facility]. GENNARO met with pt at bedside to provide update. Pt agreeable with discharging to the facility once auth is obtained. GENNARO updated pt's nurse and attending physician. Chart copy requested. Finalized dishcarge orders/summary will need to be faxed when available. [facility] will arrange transportation. Nursing to call report. GENNARO is following to assist as needed with discharge planning. [facility]---
--- NOTE | 2020-12-20 15:34 | NUR ---
assumed care of pt at 0700. pt aox4 in no acute distress. felling well. dressing change per order. strict npo. tpn infusing. up to chair w/ PT. scant amt in arely drain - flushed per order. anticipate d/c later today b/t [phone]. chesterm.
[2020-12-21 00:03] VITALS: BP 157/77
[2020-12-21 04:55] VITALS: BP 172/83
--- NOTE | 2020-12-21 06:15 | NUR ---
C/O itching during the day. Benadryl x 1 dose given with good relief. Also put moisturizer on dry skin. Kept strictly NPO per order, TPN infusing. No nausea or vomiting. Incontinent of bladder x 2 then used bedpan x 1. Pt. had a small bm. Denies any other concern. Making some progress towards care plan goals.
[2020-12-21 07:11] VITALS: BP 158/69
[2020-12-21] MEDS ORDERED: NORVASC5 MG PO (08:52)
[2020-12-21] MEDS ORDERED: TOPROL XL25 MG PO (08:52)
[2020-12-21] MEDS ORDERED: PROTONIX40 M4 PO (08:52)
[2020-12-21] MEDS ORDERED: ZOFRAN 4 MG ORAL4 MG PO (08:52)
[2020-12-21] MEDS ORDERED: PERCOCET PO (08:52)
[2020-12-21 11:18] VITALS: BP 132/72
[2020-12-21 12:23] LABS: CALCIUM 9.8 mg/dL (8.5-10.1); CREATININE 1.4 mg/dL (0.6-1.0); MAGNESIUM 2.3 mg/dL (1.8-2.4); PHOSPHORUS 4.8 mg/dL (2.6-4.7); POTASSIUM 5.5 mmol/L (3.5-5.1)
--- NOTE | 2020-12-21 14:30 | NUR ---
GENNARO reviewed chart and spoke with nursing and attending physician. Pt's discharge to [facility] yesterday was cancelled. Pt on IV push meds, which SNFs cannot accommodate. Case discussed with surgery and cardiology. Meds changed to PO. Pt able to have up to 4 pills PO daily with a few sips of water with each pill. [facility] has SNF auth, which is good through the end of the day, Thursday, 12/24. [facility] SNF is able to accept pt over the weekend. SW was notified by pt's nurse that pt is refusing to take PO meds. SW met with pt and spouse at bedside. Pt states that she will not be taking any PO meds. Pt states that she does not want to drink any water because she has been told she is to take nothing by mouth. Pt states she was informed that she would be able to go to [facility] due to her level of care needs. GENNARO explained that a referral can be sent to [facility] for review and insurance will review to see if they will authorize. GENNARO informed pt that typically her insurance will only authorize LTAC admissions for vent weaning. Pt verbalized understanding and would like to try. SW explained process for LTAC referral, eval and auth. Pt verbalized understanding. GENNARO updated pt's nurse, attending physician and Cas at [facility]. No weekend discharge planned. Referral faxed to [facility] for review. GENNARO notified [facility] liaison or new referral. GENNARO is following to assist as needed with discharge planning.
[2020-12-21 15:36] VITALS: BP 160/88
--- NOTE | 2020-12-21 19:39 | NUR ---
RN ASSUMED PT'S CARE AT 0700AM, PT IS A&OX3, PT IS CONTINUING TPN , IV ABX AND WOUND CARE , PT'S VS ARE STABLE, PT REFUSED TO DC TO SNF TODAY, PT WANTS TO TALK TO SURGICAL DR ABOUT DC PLAN AND F/U CARE , HOSPITAL DR HAS CONTACT SURGICAL DR TO TALK TO PT AND FAMILY. PT DENIES PAIN AND SOB AT DAY SHIFT.
[2020-12-21 20:05] VITALS: BP 144/81
[2020-12-22 04:20] VITALS: BP 140/69
[2020-12-22 05:16] LABS: CALCIUM 9.5 mg/dL (8.5-10.1); CREATININE 1.3 mg/dL (0.6-1.0); POTASSIUM 5.3 mmol/L (3.5-5.1)
--- NOTE | 2020-12-22 07:24 | NUR ---
PROGRESS PT A/O X4 NOT OOB THIS SHIFT, PT SCRATCHING SKIN ALL OVER BATH GIVEN AND SKIN MOISTURIZED AND BARRIER CREAM APPLIED ITCHING WAS RELIEVED. VSS TELE INTACT SHOWING LBBB WITH RATES IN 60'S. TPN AT 50CC'S/HR . POTASSIUM 5.5 PHARMACY MANAGING TPN AND REDUCED KCL FROM 35MEQ'S TO 25MEQ'S TO BE RECHECKED IN TRAVIS [employer] CAD CAM PROGRAMMER AWARE TO MONITOR. ABDOMINAL WOUND CLEANSED WITH SALINE AND PACKED WITH DAKINS SOAKED RIBBON GAUZE APPROXIMATELY 12 TO 14 INCHES PACKED INTO WOUND COVERED WITH ABD PT TOLERATED WELL. CONTINUE POC.
[2020-12-22 07:36] VITALS: BP 154/77
--- NOTE | 2020-12-22 10:08 | NUR ---
ASSUMED PT CARE AT SHIFT CHANGE, PT RESTING IN BED. NO VISITORS IN ROOM. PT SLEEPING WITH TV ON BUT EASILY AROUSED, PT REFUSED PO MEDS. CONTINUED SLEEPING WHILE IV TUBING CHANGED/MEDS HUNG. SURGEON VISITED WITH PT ABOUT CONSUMING PAIN MEDS, PROVIDED HER WITH HIS PERMISSION TO TAKE UP TO 4 PILLS WITH SIPS OF WATER. PT REFUSED STATING "I NEED MORE THAN SIPS TO TAKE PILLS" PT THEN WENT BACK TO SLEEP. NO OTHER NEEDS OR CONCERNS VOCALIZED AT THIS TIME.
[2020-12-22 15:22] VITALS: BP 161/78
[2020-12-22 19:41] VITALS: BP 180/81
[2020-12-22 23:58] VITALS: BP 165/85
[2020-12-23] VITALS (8 sets, daily range): BP systolic 135–173; BP diastolic 73–88
--- NOTE | 2020-12-23 04:47 | NUR ---
Pt. slept well during the night. Kept NPO , TPN infusing.Denies being in pain and she has been afebrile. No nausea or vomiting. Dressing on abd wound changed , purulent and SS dge. Used bedpan to void and wears brief for incontinence. Making some progress towards care plan goals.
[2020-12-23 05:07] LABS: CALCIUM 9.7 mg/dL (8.5-10.1); CREATININE 1.3 mg/dL (0.6-1.0); MAGNESIUM 2.2 mg/dL (1.8-2.4); PHOSPHORUS 4.4 mg/dL (2.6-4.7); POTASSIUM 4.9 mmol/L (3.5-5.1)
--- NOTE | 2020-12-23 18:30 | NUR ---
PT ASSESSED AT START OF SHIFT. PT NOT WANTING TO TAKE MEDS OR GET OUT OF BED. SHE EVENTUALLY DID GET UP W/ STANDBY USING WALKER TO SIT IN THE RECLINER. AND SISTER CAME TO VISIT AND HER MOOD BECAME BRIGHTER AND SHE WAS VERY TALKATIVE. ABD FISTULA SITE DSNG CHANGED. PACKING W/ THICK PURULANT DRAINAGE. BARB W/ 10MLS CLOUDY PURULENT DRAINAGE. REMAINS NPO W/ TPN.
[2020-12-24] VITALS (10 sets, daily range): BP systolic 136–179; BP diastolic 67–93
--- NOTE | 2020-12-24 00:50 | NUR ---
PT IS ALERT AND ORIENTED X4 . BP MODERATELY ELEVATED. METOPROLOL GIVEN IV ORDERED. BP DOWN TO 152/75. DENIED PAIN.HR 50-60S ON MONITOR. DRESSING CHANGED PER DAY SHIFT NS THIS EVENING. WILL CHANGE AGIAN IN AM. BARB WITH VERY LITTLE PURULENT DRAINAGE NOTED. VOIDS CLEAR YELLOW URINE PER BEDPAN. NPO AFTER MN FOR EGD TO EVALUATE SWALLOWING REGARDING R/O DYSPHASIA IN AM. BED DOWN CALL LIGHT IN REACH. BED ALARM IS ON.
--- NOTE | 2020-12-24 06:32 | NUR ---
PT PROGRESSING SLOWLY TOWARDS D/C GOALS. BP MODERATELY ELEVATED. METOPROLOL GIVEN IV Q 6 HRS. PULSE 50S-60S. WOUND STILL HAS PURULENT DRAINAGE. BARB WITH VERY SMALL AMT OF PURULENT DRAINAGE. WOUND CARE DONE ORDERED. INC OF STOOL AND URINE X1. NO C/O PAIN. NO S/S DISTRESS.
--- NOTE | 2020-12-24 16:26 | NUR ---
ON-GOING ASSESSMENT: CM REVIEWED CHART AND SPOKE WITH ATTENDING. PT IS CONTINUING TO REFUSE TO TAKE PO MEDICATION. PER ATTENDING GI WILL CONTINUE TO SEE PATIENT AND WE WILL SEE HER PROGRESS IN THE NEXT COUPLE DAYS. PT IS WANTING TO GO TO [facility]. DEJUAN SPOKE WITH EZ AT [facility] WHO REPORTS THEY RECEIVED THE REFERRAL ON THURSDAY AND HAVE SUBMITTED FOR AUTH. CM FAXED UPDATED CLINICAL TO [facility] AND CONFIRMED THEY RECEIVED. WILL CONTINUE TO FOLLOW TO ASSIST NEEDED. MYRNA/HERMAN ALSO UPDATED.
--- NOTE | 2020-12-24 19:25 | NUR ---
RN ASSUMED PT'S CARE AT 0800AM, PT IS A&OX3, PT IS CONTINUING WOUND CARE AND IV ABX, PT IS ON NPO , PT IS TOLERATED TPN @50ML/HR, PT GETS UP TO WALK THE HALLWAY TODAY WITH ASSIST, PT DENIES PAIN AT THIS TIME.
--- NOTE | 2020-12-24 22:08 | NUR ---
PT PROGRESSING TOWARDS D/C GOALS. VSS. BP WNL PRESENTLY AT THIS TIME. HRR SR WITH BBB ON MONITOR. DENIED PAIN. NO S/S DISTRESS. BED DOWN .CALL LIGHT IN REACH. BED ALARM IS ON. NO C/O N/V. ABDOMINAL DRESSING IS CLEAN DRY AND INTACT. SMALL AMT PURUKLENT DRG NOTED IN BARB.
[2020-12-25 05:16] VITALS: BP 160/74
[2020-12-25 05:58] VITALS: BP 132/63
--- NOTE | 2020-12-25 06:31 | NUR ---
PT PROGRESSING SLOWLY TOWARDS D/C GOALS. ABDOMINAL WOUND CONTINUE TO DRIAN PURLENT DRAINAGE. BARB HAS 5 ML PURULENT DRAINAGE NOTED. FLUSHED DRAIN ORDERED. TPN INFUSING RIGHT ARM. NO S/S DISTRESS.
[2020-12-25 07:40] VITALS: BP 160/74
--- NOTE | 2020-12-25 15:53 | NUR ---
GENNARO reviewed chart and spoke with nursing and attending physician. Pt remains NPO. Pt is on TPN and IV abx. GENNARO faxed clinical/therapy updates to [facility] for review. Notified [facility] liaison. Awaiting input from pt's insurance at this time. GENNARO met with pt at bedside to provide update. Pt is aware and verbalized understanding. Attending physician has agreed to do peer to peer with pt's insurance if needed. GENNARO is following to assist as needed with discharge planning.
--- NOTE | 2020-12-25 18:08 | NUR ---
RN ASSUMED PT'S CARE AT 0700AM, PT IS A&OX4 , PT IS ON NPO , PT IS CONTINUING TPN , AND WOUND CARE , PT'S ABD BARB TUBE HAS SMALL DRINAGE , PT GETS UP TO WALK IN HALLWAY WITH ASSIST, PT DENIES PAIN AND N/V BY THIS TIME.
[2020-12-25 20:05] VITALS: BP 139/71
[2020-12-26 04:42] VITALS: BP 179/86
[2020-12-26 05:55] LABS: ABSOLUTE NEUTROPHILS 4.1 thou/uL (1.4-8.2); BASOPHILS 0.5 % (0.0-2.0); EOSINOPHILS 4.7 % (0.0-3.0); HEMOGLOBIN 9.8 gm/dL (12.0-15.0); LYMPHOCYTES 42.1 % (24.0-44.0); MCH 28.2 pg (26.0-34.0); MCHC 33.7 g/dL (28.0-37.0); MCV 83.7 fL (80.0-100.0); MONOCYTES 8.4 % (1.0-8.0); PLATELET COUNT 337 thou/uL (150-400); POLYS 44.3 % (36.0-66.0); RBC 3.47 mil/uL (4.20-5.00); RDW 15.4 % (10.5-14.5); WBC 9.3 thou/uL (4.0-11.0)
[2020-12-26 06:30] LABS: CALCIUM 9.4 mg/dL (8.5-10.1); CREATININE 1.2 mg/dL (0.6-1.0); MAGNESIUM 2.2 mg/dL (1.8-2.4); PHOSPHORUS 4.4 mg/dL (2.5-4.9); POTASSIUM 4.1 mmol/L (3.5-5.1)
--- NOTE | 2020-12-26 06:39 | NUR ---
PT HAD X1 URINE INCONTINENCE. FOLLOWING POC WITH TPN AT 50ML/HR. TELE SHOWS SR/SB WITH A BBB. PT STILL NPO. WOUND SITE INTACT. BARB DRAIN FLUSHED AND ONLY SCANT OUTPUT.
[2020-12-26 07:28] VITALS: BP 154/79
--- NOTE | 2020-12-26 14:31 | NUR ---
GENNARO reviewed chart and spoke with nursing and attending physician. Pt remains on TPN and IV abx. Pt had abdominal CT earlier today. GENNARO faxed clinical updates to [facility] for review. Notified [facility] liaison of updates. Awaiting input from pt's insurance at this time. GENNARO met with pt at bedside to provide update. Pt verbalized understanding. GENNARO is following to assist as needed with discharge planning.
[2020-12-26 15:58] VITALS: BP 174/83
--- NOTE | 2020-12-26 18:17 | NUR ---
RN ASSUMED PT'S CARE AT 0700AM, PT IS A&O X4, PT STILL IS NPO , PT IS CONTINUING IV ABX , AND WOUND CARE , PT IS TOLERATED TPN @50ML/HR, PT GETS UP TO USE BSC, PT DENIES PAIN AT THIS TIME,
[2020-12-26 18:53] VITALS: BP 172/81
[2020-12-27 04:31] VITALS: BP 172/76
[2020-12-27 07:27] VITALS: BP 142/75
--- NOTE | 2020-12-27 08:25 | NUR ---
PROGRESS PT A/O X4 UP WITH SBA. VSS. BP HIGH 172/82, PRN HYDRALAZINE GIVEN WITH LITTLE EFFECT. SCHEDULED METOPROLOL GIVEN. REFUSED DRSG CHANGE AND SLEPT ALL NIGHT CONTINUE TO MONITOR.
[2020-12-27 10:32] LABS: HEMATOCRIT 29.9 % (37.0-47.0); HEMOGLOBIN 9.8 gm/dL (12.0-15.0); MCHC 32.6 g/dL (28.0-37.0); RBC 3.25 mil/uL (4.20-5.00); RDW 17.4 % (10.5-14.5); WBC 9.5 thou/uL (4.0-11.0)
[2020-12-27 10:36] LABS: MCV 92.2 fL (80.0-100.0)
--- NOTE | 2020-12-27 14:22 | NUR ---
GENNARO reviewed chart and spoke with nursing and attending physician. Pt remains on TPN and IV abx. SW faxed clinical/therapy updates to [facility] for review. TPN formula also sent. GENNARO updated [facility] liaison, who states they are still waiting to hear back from pt's insurance. Attending physician is willing to do a peer to peer if auth for LTAC is denied. GENNARO met with pt at bedside to provide update. Pt verbalized understanding. GENNARO updated [facility] liaison. GENNARO is following to assist as needed with discharge planning.
[2020-12-27 15:35] VITALS: BP 163/64
--- NOTE | 2020-12-27 16:51 | NUR ---
CARE TAKEN OVER THIS AM, PT ALERT AND ORIENTED X4, DENIES ANY PAIN, NAUSEA AND VOMITTING. PT WAS UP IN THE CHAIR MOST OF THE TIME AM. CONTINUES TO BE NPO. ABDOMINAL WOUND CARE COMPLETED PER ORDER. BARB DRAIN IN PLACE. FALL PRECAUTION IN PLACE. WILL CONTINUE TO MONITOR
[2020-12-27 19:46] VITALS: BP 168/68
[2020-12-28 04:11] VITALS: BP 151/83
--- NOTE | 2020-12-28 04:20 | NUR ---
PROGRESS PT ALERT AND ORIENTED X 4. PT HAS SEEMED DEPRESSED THE LAST 2 DAYS, I ASKED HER IF SOMETHING WAS BOTHERING HER AND SHE SAID THE GI GROUP UPSET HER BECAUSE THEY TOLD HER SHE WOULD TAKE 5 MONTHS TO HEAL AND WERE TRYING TO CONVINCE HER TO HAVE A SCOPE THAT SHE FEELS IS UNNECESSARY. I TOLD HER SHE HAS THE RIGHT TO REFUSE BUT MAYBE DOWN THE ROAD THE SCOPE WOULD BE NECESSARY IF SHE WASN'T ABLE TO SWALLOW. VSS BP BETTER THIS SHIFT. DRESSING INTACT TO [facility]LINE ABDOMEN REFUSED DRESSING CHANGE SHE SAID IT WAS JUST DONE THIS EVENING, BARB FLUSHED ORDERED 15 CC CLOUDY CLEAR DRAINAGE RETURNED.
[2020-12-28 05:28] LABS: HEMATOCRIT 28.6 % (37.0-47.0); HEMOGLOBIN 9.4 gm/dL (12.0-15.0); MCH 27.8 pg (26.0-34.0); MCHC 32.9 g/dL (28.0-37.0); RBC 3.38 mil/uL (4.20-5.00); RDW 15.7 % (10.5-14.5); WBC 9.5 thou/uL (4.0-11.0)
[2020-12-28 05:35] LABS: MCV 84.8 fL (80.0-100.0)
[2020-12-28 05:55] LABS: CALCIUM 9.4 mg/dL (8.5-10.1); CREATININE 1.1 mg/dL (0.6-1.0); POTASSIUM 3.9 mmol/L (3.5-5.1)
[2020-12-28 07:31] VITALS: BP 151/83
[2020-12-28 08:29] VITALS: BP 137/75
--- NOTE | 2020-12-28 12:12 | NUR ---
DISCHARGE NOTE: GENNARO reviewed chart and spoke with nursing and attending physician. GENNARO notified by [facility] liaison, that they did receive authorization for pt to be admitted to LTAC today. Hien arranged w/c van transportation for 1500 this afternoon. GENNARO met with pt at bedside to provide update and discuss insurance approval and discharge plan. Pt states that today is her birthday and she did not want to d/c today. GENNARO explained that insurance auth has been given and she is medically necessary. Also, [facility] does not accept weekend admissions and insurance auth is only given for a couple days. Pt verbalized understanding and agreeable with plan. GENNARO updated [facility] liaison, who states that someone will follow up with pt's spouse regarding request for medical records. GENNARO left voice message for pt's spouse to notify of insurance auth, discharge and follow up from [facility]. Chart copy requested. Nursing provided with number for report. Awaiting finalized discharge orders/summary at this time, to fax to [facility]. GENNARO is following to finalize discharge plan.
[2020-12-28] MEDS ORDERED: PACERONE 200 M200 M1 PO (13:12)
[2020-12-28 16:14] VITALS: BP 165/84
--- NOTE | 2020-12-28 17:11 | NUR ---
1500 PT BELONGING PACKED, ABD WOUND DRESSING DONE AND PICTURES TAKEN. PICC LINE IN PLACE. BARB DRAIN FLUSHED AND EMPTY 15CC. PT DRESSED. TRANSPORTATION HERE FOR PT. REPORT GIVEN TO [facility].
== END 2020-12-28 17:28 | DRG 862 ==
LOC: ER 10:33 → 4W 13:58 → EROBS 13:58 → 3W 13:58 → 4W 15:29 → 3W 12-16 11:09
PROVIDERS: Emergency Medicine; Hospitalist; Internal Medicine; Nurse Practitioner; Nurse Practitioner Family; Radiology Diagnostic Radiology; Specialist; Surgery; ADMIT Hospitalist; ATTEND Hospitalist
DX: T81.43XA Infection following a procedure, organ and space surgical site, initial encounter (principal); E43 Unspecified severe protein-calorie malnutrition; A41.9 Sepsis, unspecified organism; T81.31XA Disruption of external operation (surgical) wound, not elsewhere classified, initial encounter; N17.9 Acute kidney failure, unspecified; J90 Pleural effusion, not elsewhere classified; L02.211 Cutaneous abscess of abdominal wall; Z68.1 Body mass index [BMI] 19.9 or less, adult; I48.21 Permanent atrial fibrillation; E87.2 Acidosis; J98.11 Atelectasis; E87.0 Hyperosmolality and hypernatremia; K63.2 Fistula of intestine; Z20.822 Contact with and (suspected) exposure to COVID-19; E87.6 Hypokalemia; K57.30 Diverticulosis of large intestine without perforation or abscess without bleeding; I12.9 Hypertensive chronic kidney disease with stage 1 through stage 4 chronic kidney disease, or unspecified chronic kidney disease; N18.30 Chronic kidney disease, stage 3 unspecified; Y83.6 Removal of other organ (partial) (total) as the cause of abnormal reaction of the patient, or of later complication, without mention of misadventure at the time of the procedure; R53.81 Other malaise; I44.7 Left bundle-branch block, unspecified; E83.42 Hypomagnesemia; D63.8 Anemia in other chronic diseases classified elsewhere; E87.8 Other disorders of electrolyte and fluid balance, not elsewhere classified; K21.9 Gastro-esophageal reflux disease without esophagitis; Z90.712 Acquired absence of cervix with remaining uterus; Y92.89 Other specified places as the place of occurrence of the external cause; Z90.722 Acquired absence of ovaries, bilateral; Z90.79 Acquired absence of other genital organ(s); Z79.899 Other long term (current) drug therapy; Z87.891 Personal history of nicotine dependence
CPT/HCPCS: 10045; 10047; 10879; 27000